=== PATIENT | female | born 1950 | race Hispanic/Latino ===

== ENCOUNTER 2018-05-14 06:54 | Observation (INO) | payer MEDICARE ==
[2018-05-04 13:35] LABS: BASOPHILS # (AUTO) 0.1 (0.0-0.1); BASOPHILS % 0.5 % (0.0-1.0); EOSINOPHILS # (AUTO) 0.3 (0.0-0.4); EOSINOPHILS % 2.6 % (0.0-6.0); HEMATOCRIT 40.2 % (34.2-44.1); HEMOGLOBIN 12.8 g/dL (12.0-16.0); LYMPHOCYTES # (AUTO) 3.3 (1.0-3.2); LYMPHOCYTES % 28.6 % (18.0-39.1); MEAN CORPUSCULAR HEMOGLOBIN 27.2 pg (28-32); MEAN CORPUSCULAR HGB CONC 31.8 g/dL (31-35); MEAN CORPUSCULAR VOLUME 85.4 fL (81-99); MONOCYTES # (AUTO) 0.7 (0.2-0.8); MONOCYTES % 6.4 % (4.4-11.3); NEUTROPHILS # (AUTO) 7.1 (2.1-6.9); NEUTROPHILS % 61.6 % (38.7-80.0); PLATELET COUNT 307 x10e3/uL (140-360); RED BLOOD COUNT 4.71 x10e6/uL (3.6-5.1); RED CELL DISTRIBUTION WIDTH 14.3 % (11.7-14.4)
[2018-05-04 13:58] LABS: BLOOD UREA NITROGEN 20 mg/dL (7-26); BUN/CREATININE RATIO 23 (6-25); CALCIUM 8.9 mg/dL (8.4-10.2); CARBON DIOXIDE 23 mmol/L (22-29); CHLORIDE 105 mmol/L (98-107); CREATININE, SERUM 0.86 mg/dL (0.57-1.11); EST GLOMERULAR FILTRATION RATE > 60 ML/MIN (60-); GLUCOSE 137 mg/dL (74-118); SODIUM 138 mmol/L (136-145)
--- NOTE | 2018-05-04 14:14 | Diagnostic Imaging Report ---
Frontal and lateral views of the chest. HISTORY: Preop, nonunion left humerus COMPARISON: None available. DISCUSSION: Soft tissue attenuation partially limits sensitivity of the exam. Lungs: Low lung volumes result in bibasilar vascular crowding, accentuation of the pulmonary interstitial markings, central pulmonary vasculature, and the cardiac silhouette. Allowing for these limitations, the findings are as follows: No evidence of a consolidative pneumonia or pulmonary alveolar edema. Pleura: No pleural effusion or pneumothorax. Heart and mediastinum: The cardiomediastinal silhouette appears unremarkable. Bones: No acute osseous lesion. Minimal to mild multilevel degenerative disc changes. IMPRESSION: No acute radiographic abnormality, when allowing for the expiratory phase of respiration. Signed by: Dr. Amrit Esposito D.O., M.M.M. on 05/04/2018 2:11 PM
[~2018-05-14] VITALS: Ht 154.9 cm; Wt 79.8 kg
[~2018-05-14 06:54] MED LIST: AMLODIPINE BESYL5 MG PO; FARXIGA PO; HUMALOG MI100 UNITS/ SC; IBUPROFEN400 MG PO; LISINOPRIL10 MG PO; LORATADINE10 MG PO; LYRICA75 MG PO; METFORMIN HCL850 MG PO; ULTRAM50 MG PO; VICTOZA 2-0.6 MG/0.1 PO
--- OUTSIDE RECORDS SUMMARY | 2018-05-14 06:56 | XMS REPORT ---
Author Author [facility] Address Unknown Phone Unavailable Care Team Providers Care Piece Worker Name Role Phone TIO AIKEN Unavailable Unavailable Payers Payer Name Policy Type Policy Number Effective Date Expiration Date Problems This patient has no known problems. Allergies, Adverse Reactions, Alerts Allergy Name Allergy Type Status Severity Reaction(s) Onset Date Inactive Date Treating Clinician Comments No Known Allergies DA Active U 2012-04-03 00:00:00 Medications This patient has no known medications. Encounters Start Date/Time End Date/Time Encounter Type Admission Type Attending [facility] Care Department Encounter ID 2018-03-30 15:50:26 2018-03-30 15:50:26 Emergency [facility] [id number] 2018-03-30 13:15:55 2018-03-30 13:15:55 Emergency [facility] [id number] 2017-10-17 00:00:00 2017-10-17 00:00:00 Outpatient [facility] [id number] 2017-09-25 10:46:05 2017-09-25 10:46:05 Outpatient [facility] [id number] 2017-09-05 16:00:40 2017-09-05 16:00:40 Emergency [facility] [id number] 2017-08-30 00:00:00 2017-08-30 00:00:00 Outpatient [facility] [id number] 2017 18:47:25 2017 18:47:25 Emergency [facility] [id number] 2017 15:22:07 2017 15:22:07 Emergency [facility] [id number] 2017 00:00:00 2017 00:00:00 Outpatient [facility] [id number] 2017 00:00:00 2017 00:00:00 Outpatient [facility] [id number] 2017-08-17 00:00:00 2017-08-17 00:00:00 Outpatient [facility] [id number] 2017-07-25 00:00:00 2017-07-25 00:00:00 Outpatient [facility] [id number] 2017-07-25 00:00:00 2017-07-25 00:00:00 Outpatient [facility] [id number] 2017-07-17 10:11:04 2017-07-17 10:11:04 Outpatient [facility] [id number] 2017-07-09 20:41:22 2017-07-09 20:41:22 Emergency [facility] [id number] 2017-07-09 17:20:57 2017-07-09 17:20:57 Emergency [facility] [id number] 2017-06-23 13:55:52 2017-06-23 13:55:52 Outpatient [facility] [id number] 2017-06-21 00:00:00 2017-06-21 00:00:00 Outpatient [facility] [id number] 2017-06-07 00:00:00 2017-06-07 00:00:00 Outpatient [facility] [id number] 2017-05-31 00:00:00 2017-05-31 00:00:00 Outpatient [facility] [id number] 2017-05-26 11:22:36 2017-05-26 11:22:36 Outpatient [facility] [id number] 2017-05-17 00:00:00 2017-05-17 00:00:00 Outpatient [facility] [id number] 2017-05-09 00:00:00 2017-05-09 00:00:00 Outpatient [facility] [id number] 2017-05-02 00:00:00 2017-05-02 00:00:00 Outpatient [facility] [id number] 2017-05-01 13:17:12 2017-05-01 13:17:12 Outpatient [facility] [id number] 2017-04-27 14:33:24 2017-04-27 14:33:24 Outpatient [facility] [id number] 2017-04-27 14:27:46 2017-04-27 14:27:46 Outpatient [facility] [id number] 2017-04-20 18:26:30 2017-04-20 18:26:30 Emergency [facility] [id number] 2017-04-04 09:06:46 2017-04-04 09:06:46 Outpatient [facility] [id number] 2017-03-27 09:59:45 2017-03-27 09:59:45 Outpatient [facility] [id number] 2017-03-20 00:00:00 2017-03-20 00:00:00 Outpatient [facility] [id number] 2017-03-16 00:00:00 2017-03-16 00:00:00 Outpatient [facility] [id number] 2017-03-14 00:00:00 2017-03-14 00:00:00 Outpatient [facility] [id number] 2017-03-09 00:00:00 2017-03-09 00:00:00 Outpatient [facility] [id number] 2017-03-06 10:28:06 2017-03-06 10:28:06 Outpatient [facility] [id number] 2017-02-27 16:20:21 2017-02-27 16:20:21 Outpatient [facility] [id number] 2017-02-23 00:00:00 2017-02-23 00:00:00 Outpatient [facility] [id number] 2017-02-14 00:00:00 2017-02-14 00:00:00 Outpatient [facility] [id number] 2017-02-13 00:00:00 2017-02-13 00:00:00 Outpatient [facility] [id number] 2017-02-13 00:00:00 2017-02-13 00:00:00 Outpatient [facility] [id number] 2017-02-01 13:07:37 2017-02-01 13:07:37 Outpatient [facility] [id number] 2017-01-31 23:19:04 2017-01-31 23:19:04 Emergency [facility] [id number] 2017-01-31 17:18:17 2017-01-31 17:18:17 Emergency [facility] [id number] 2017-01-31 15:30:47 2017-01-31 15:30:47 Outpatient [facility] [id number] 2017-01-30 00:00:00 2017-01-30 00:00:00 Outpatient [facility] [id number] 2017-01-20 00:00:00 2017-01-20 00:00:00 Outpatient [facility] [id number] 2017-01-19 07:54:33 2017-01-19 07:54:33 Outpatient [facility] [id number] 2017-01-12 15:44:53 2017-01-12 15:44:53 Outpatient [facility] [id number] 2017-01-12 15:21:24 2017-01-12 15:21:24 Outpatient [facility] [id number] 2017-01-03 08:20:49 2017-01-03 08:20:49 Outpatient [facility] [id number] 2016-12-30 13:47:12 2016-12-30 13:47:12 Outpatient [facility] [id number] 2016-12-29 07:39:37 2016-12-29 07:39:37 Outpatient [facility] [id number] 2016-12-26 00:00:00 2016-12-26 00:00:00 Outpatient [facility] [id number] 2016-12-22 11:21:31 2016-12-22 11:21:31 Outpatient [facility] [id number] 2016-12-22 11:04:52 2016-12-22 11:04:52 Outpatient [facility] [id number] 2016-12-21 09:53:07 2016-12-21 09:53:07 Outpatient [facility] [id number] 2016-12-21 00:00:00 2016-12-21 00:00:00 Outpatient [facility] [id number] 2016-12-09 00:00:00 2016-12-09 00:00:00 Outpatient [facility] [id number] 2016-12-05 08:22:09 2016-12-05 08:22:09 Outpatient [facility] [id number] 2016-12-05 07:57:13 2016-12-05 07:57:13 Outpatient [facility] [id number] 2016-11-09 08:14:20 2016-11-09 08:14:20 Outpatient [facility] [id number] 2016-11-02 15:08:05 2016-11-02 15:08:05 Outpatient [facility] [id number] 2016-11-02 13:49:40 2016-11-02 13:49:40 Outpatient [facility] [id number] Results Test Description Test Time Test Comments Text Results Atomic Results Result Comments CHEST 2 VIEWS 2018-05-04 14:09:00 [facility] [address] [place], [place] [id number] Patient Name: ROSANNA PAZ MR #: [id number] : 1950 Age/Sex: 67/F Req #: [id number] [facility] Physician: Ordered by: TIO AIKEN MD Report #: [id number] Location: OR Room/Bed: Procedure: [id number] DX/CHEST 2 VIEWS Exam Date: 05/04/18 Exam Time: 1200 REPORT STATUS: Signed Frontal and lateral views of the chest. HISTORY: Preop, nonunion left humerus COMPARISON: None available. DISCUSSION: Soft tissue attenuation partially limits sensitivity of the exam. Lungs: Low lung volumes result in bibasilar vascular crowding, accentuation of the pulmonary interstitial markings, central pulmonary vasculature, and the cardiac silhouette. Allowing for these limitations, the findings are as follows: No evidence of a consolidative pneumonia or pulmonary alveolar edema. Pleura: No pleural effusion or pneumothorax. Heart and mediastinum: The cardiomediastinal silhouette appears unremarkable. Bones: No acute osseous lesion. Minimal to mild multilevel degenerative disc changes. IMPRESSION: No acute radiographic abnormality, when allowing for the expiratory phase of respiration. Signed by: Dr. Lisa Esposito D.O., M.M.M. on 05/04/2018 2:11 PM Dictated By: LISA ESPOSITO DO 10 Transcribed By: EDUARDO on 05/04/181410 COPY TO: TIO AIKEN MD
[2018-05-14] MEDS ORDERED: CEFAZOLIN SOD 1 GM VIAL ONE (07:33)
[2018-05-14] MEDS ORDERED: ACETAMINOPHEN 1000 MG/100 ML 100 ML IV ONE (11:22)
[2018-05-14] MEDS: SODIUM CHLORIDE 0.9% 1000ML 1,000 ML IV SCH ×3 (12:36→22:36)
[2018-05-14] MEDS ORDERED: ACETAMINOPHEN 650 MG SUPP PR PRN (12:45)
[2018-05-14] MEDS ORDERED: HYDROCODONE/APAP 7.5MG-325MG 1 EA TAB PO PRN (12:45)
[2018-05-14] MEDS ORDERED: HYDROCODONE/APAP 5MG-325MG TAB PO PRN (12:45)
[2018-05-14] MEDS ORDERED: KETOROLAC TROMETHAMINE 30 MG/ML VIAL IV PRN (12:45)
[2018-05-14] MEDS ORDERED: DOCUSATE SODIUM 100 MG CAP PO PRN (12:45)
[2018-05-14] MEDS ORDERED: PROMETHAZINE HCL (IM) 25 MG/ML VIAL INJ PRN (12:45)
[2018-05-14] MEDS ORDERED: DIPHENHYDRAMINE HCL INJ 50 MG/ML VIAL IM/IV PRN (12:45)
[2018-05-14] MEDS ORDERED: ZOLPIDEM TARTRATE 5 MG TAB PO PRN (12:45)
[2018-05-14] MEDS ORDERED: ONDANSETRON HCL INJ 2MG/ML 2ML 2 MG/ML VIAL IV PRN (12:45)
[2018-05-14] MEDS ORDERED: HYDROMORPHONE 2MG/ML 2 MG/ML ML ONE (12:49)
[2018-05-14] MEDS ORDERED: FENTANYL CITRATE/PF 100MCG/2 ML INJ ONE ×2 (13:11→18:18)
[2018-05-14] MEDS ORDERED: MORPHINE SULFATE 2 MG/ML SYR 1ML ONE (13:38)
[2018-05-14] MEDS ORDERED: CEFAZOLIN SOD 1 GM/NS 50ML 50 ML IV SCH (14:00)
[2018-05-14] MEDS ORDERED: HYDROCODONE/APAP 7.5MG-325MG 1 EA TAB ONE (14:47)
--- NOTE | 2018-05-14 15:12 | Operative Report ---
DATE OF PROCEDURE: May 14, 2018 USER INTERFACE ARTIST: Zeke Alcazar PA-C The patient was brought to the operating room for induction of anesthesia. Throughout this case, my PA's assistance was necessary for retraction of soft tissue and positioning of the extremity. This allows for efficient and technically successful execution of the operation and is considered medically necessary. PREOPERATIVE DIAGNOSIS: Left humeral shaft nonunion. POSTOPERATIVE DIAGNOSIS: Left humeral shaft nonunion. PROCEDURE: 1. Irrigation and debridement, left humeral shaft nonunion. 2. Open reduction and internal fixation, left humerus. INDICATIONS: The patient is a 67-year-old lady who is approximately 2 years status post a left humeral shaft fracture. 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 There was gross mobility at the fracture site. The findings and options have been discussed with the patient. She would like to have this surgically stabilized. The risks and benefits have been explained at length. All of her questions have been answered. She states she understands and wishes to proceed. DESCRIPTION OF PROCEDURE: The patient was brought to the operating room and placed under general anesthetic. She received a regional block and prophylactic antibiotics in the holding area. Her left upper extremity was prepped and draped in a sterile manner. A preoperative time out was performed. An anterior approach was made to the left shoulder and proximal humerus. The deltopectoral interval was identified. The cephalic vein was protected throughout the case. The fracture site was carefully exposed. Hemostasis was obtained with electrocautery. The hypertrophic nonunion was debrided of all fibrous tissue at the fracture site. The fracture was grossly lined up and the shaft of the humerus was contoured to allow positioning of a plate. A [employer] proximal humeral locking plate was placed on the humeral shaft. Positioning of the hardware was confirmed with an intraoperative C-arm image intensifier. The fracture was locked with a combination of compression and locking screws. Intraoperative x-rays confirmed near anatomic alignment and good positioning of all the hardware. The wound was thoroughly irrigated. Ten mL of DBX bone putty was injected at the fracture site. The deep fascia was closed with 0 Vicryl. The skin was closed with subcuticular Vicryl and milana. She was placed into a sterile bandage and an ultra sling. She was extubated and transported to the recovery room in stable condition. Estimated blood loss was 100 mL. At the end of the procedure needle and sponge counts were correct. Job#: [id number] GH
--- NOTE | 2018-05-14 15:25 | NUR ---
RECEIVED PATIENT FROM PACU, ARRIVED IN STRETCHER ABLE TO ASSIST TO TRANSFER FROM STRETCHER TO BED, PATIENT IS AWAKE ALERT AND ORIENTED TO SELF, AND MOANING C/O OF PAIN TO LEFT UPPER EXTREMITY, S/P ORIF TO LEFT HUMERUS,. IVF INFUSING LR, PLACED ON IV PUMP @100CC/HR. PATIENT REQUESTED REMOVAL OF NON-SKID SOCKS, IV ACCESS TO RIGHT HAND. ORIENTED TO ROOM AND USE OF CALL LIGHT FAMILY AT BEDSIDE, WILL CONTINUE TO MONITOR.
[2018-05-14 16:00] VITALS: BP 154/89
[2018-05-14] MEDS: ASPIRIN 325 MG TAB PO SCH (17:42)
[2018-05-14] MEDS: CEFAZOLIN SOD 1 GM VIAL IV SCH ×2 (17:42→22:36)
[2018-05-14] MEDS: ACETAMINOPHEN 1000 MG/100 ML IV SCH (17:43)
[2018-05-14] MEDS: CELECOXIB 200 MG CAP PO SCH (17:50)
[2018-05-14] MEDS ORDERED: LIDOCAINE HCL 2% LOCAL INJ 5 ML SDV VIAL INJ ONE (18:02)
[2018-05-14] MEDS ORDERED: ONDANSETRON HCL INJ 2MG/ML 2ML 2 MG/ML VIAL ONE (18:02)
[2018-05-14] MEDS ORDERED: PROPOFOL IV EMULSION 10 MG/ML 20 ML VIAL ONE (18:02)
[2018-05-14] MEDS ORDERED: DEXAMETHASONE SOD PHOS INJ 4 MG/ML VIAL ONE (18:02)
[2018-05-14] MEDS ORDERED: SEVOFLURANE INHAL SOLN 250 ML PEN BTL ONE (18:02)
[2018-05-14] MEDS ORDERED: ROPIVACAINE 0.5% 5 MG/ML 30 ML SDV ONE (18:04)
[2018-05-14] MEDS ORDERED: LIDOCAINE 2%/ EPINEPHRINE 20ML MDV ONE (18:04)
[2018-05-14] MEDS ORDERED: MIDAZOLAM HCL 2 MG/2 ML VIAL ONE (18:18)
[2018-05-14 19:16] VITALS: BP 154/89
[2018-05-14 20:00] VITALS: BP 189/91
[2018-05-14] MEDS ORDERED: DEXTROSE 50% SYRINGE 50 ML IV PRN (20:00)
--- NOTE | 2018-05-14 20:00 | NUR ---
BLOOD SUGAR SHOWS 261.CALL PLACED TO MD HINOJOSA TO RENEW THE HOME MEDICATION(BP MEDICINES & INSULIN).RECEIVED ORDERS.CARRIED OUT THE ORDERS.
[2018-05-14 20:20] VITALS: BP 189/91
[2018-05-14] MEDS: AMLODIPINE BESYLATE 5 MG TAB PO SCH (20:59)
[2018-05-14] MEDS ORDERED: PNEUMOCOCCAL VACCINE POLYVALENT 23 MCG/0.5 ML VIAL IM ONE (21:00)
[2018-05-14] MEDS: INSULIN LISPRO 100 UNIT/1 ML 3ML VIAL SQ SCH (21:00)
--- NOTE | 2018-05-14 21:30 | NUR ---
IV IS LEAKING.NEW IV STARTED @ R.WRIST.ASSESSMENT DONE.AAOX4.PAIN VOICED 10/26.PAIN MEDICATION GIVEN.VOIDED.AMBULATES WITH ASSISTANCE.L.ARM SUPPORTED WITH SLING.BED LOCKED AND IN LOWEST POSITION.CALL LIGHT WITHIN REACH.FAMILY MEMBER @ BED SIDE.FREQUENT ROUNDING.
[2018-05-15] MEDS: ACETAMINOPHEN 1000 MG/100 ML IV SCH ×2 (00:05→05:48)
[2018-05-15 00:11] VITALS: BP 146/68
[2018-05-15 04:00] VITALS: BP 125/69
[2018-05-15 05:23] LABS: HEMATOCRIT 38.1 % (34.2-44.1)
[2018-05-15] MEDS: CEFAZOLIN SOD 1 GM VIAL IV SCH (05:48)
--- NOTE | 2018-05-15 06:00 | NUR ---
DRESSING CHANGED TO L.ARM.SITE IS DRY AND INTACT.TOLERATED WELL.
--- NOTE | 2018-05-15 06:07 | Consultation ---
DATE OF CONSULTATION: REASON FOR CONSULTATION: Postop medical management. HISTORY OF PRESENT ILLNESS: The patient is a lady who is status post left shoulder fracture repair and is doing well postoperatively, but does complain of some pain in the left arm area. REVIEW OF SYSTEMS: Denies any chest pain, fever, chills, nausea, vomiting, headaches, shortness of breath, or dizziness. PAST MEDICAL HISTORY: Diabetes and hypertension. MEDICATIONS: See MAR. ALLERGIES: SEE MAR. SOCIAL HISTORY: Lives at home with her . Nonsmoker and nondrinker. FAMILY HISTORY: Noncontributory. PHYSICAL EXAMINATION VITALS: 98.6, pulse 76, blood pressure 136/74, sats 98%. GENERAL: No apparent distress. NECK: Supple. CARDIOVASCULAR: Regular rate and rhythm. LUNGS: Clear to auscultation bilaterally. ABDOMEN: Good bowel sounds. Soft and nontender. EXTREMITIES: No clubbing or cyanosis. Left arm is in a brace. Is able to move left fingers and they are warm to touch with good capillary refill. NEUROLOGIC: Nonfocal. ASSESSMENT 1. Status post left humeral fracture repair: Continue with postoperative care and pain control. 2. Hypertension: Continue with her medications and monitor blood pressure. 3. Diabetes: Continue current care and management for sugar. Please see hospital chart for full details. Job#: [id number] ALEXANDRE
--- NOTE | 2018-05-15 06:50 | NUR ---
REPORT GIVEN TO THE ONCOMING RN.WALKING ROUNDS DONE.STABLE CONDITION.
[2018-05-15] MEDS ORDERED: METFORMIN HCL 500 MG TAB PO SCH (08:00)
[2018-05-15] MEDS: ASPIRIN 325 MG TAB PO SCH (08:11)
[2018-05-15] MEDS: CELECOXIB 200 MG CAP PO SCH (08:11)
[2018-05-15] MEDS: INSULIN LISPRO 100 UNIT/1 ML 3ML VIAL SQ SCH (08:11)
[2018-05-15] MEDS: AMLODIPINE BESYLATE 5 MG TAB PO SCH (08:11)
[2018-05-15] MEDS: SODIUM CHLORIDE 0.9% 1000ML 1,000 ML IV SCH (08:16)
[2018-05-15 08:26] VITALS: BP 123/63
[2018-05-15 08:31] VITALS: BP 123/63
[2018-05-15] MEDS ORDERED: METFORMIN HCL 850 MG TAB PO SCH (09:00)
[2018-05-15] MEDS ORDERED: LISINOPRIL 10 MG TAB PO SCH (09:00)
[2018-05-15] MEDS ORDERED: LISINOPRIL 20 MG TAB PO SCH (09:00)
[2018-05-15] MEDS ORDERED: PNEUMOCOCCAL VACCINE POLYVALENT 23 MCG/0.5 ML VIAL IM ONE (10:00)
[2018-05-15 11:33] VITALS: BP 102/56
[2018-05-15 11:35] VITALS: BP 102/56
[2018-05-15] MEDS ORDERED: NORCO 5-325 TA1 EACH PO (12:01)
[2018-05-15] MEDS ORDERED: ACETAMINOPHEN 1000 MG/100 ML IV PRN (12:45)
--- NOTE | 2018-07-22 08:25 | Consultation ---
DATE OF CONSULTATION: May 15, 2018 REASON FOR CONSULTATION: Postop medical management. HISTORY OF PRESENT ILLNESS: Patient is a 67-year-old status post left arm fracture repair, who is doing well postoperatively. Denies any chest pain, fever, chills, nausea, vomiting, headaches shortness of breath, or dizziness on review of systems, but does have some arm pain that is controlled. PAST MEDICAL HISTORY: Significant for diabetes and hypertension. MEDICATIONS: See MAR. ALLERGIES: NONE. SOCIAL HISTORY: Nonsmoker, nondrinker. FAMILY HISTORY: Noncontributory. PHYSICAL EXAMINATION VITAL SIGNS: Temperature 97.9, pulse 82, blood pressure 146/68, sats 96%. GENERAL: In no apparent distress. LUNGS: Clear to auscultation bilaterally. ABDOMEN: Good bowel sounds. Soft and nontender. CARDIOVASCULAR: Regular rate and rhythm. NECK: No lymphadenopathy. EXTREMITIES: Show no clubbing or cyanosis. NEUROLOGIC: Nonfocal. ASSESSMENT AND PLAN 1. Left arm fracture/pain. We will continue with postoperative care. 2. Diabetes. Continue with current care, monitoring of sugar. 3. Hypertension. Continue with her medications. Please see hospital chart for full details. Job#: [id number] PUN
== END 2018-05-15 12:26 | disposition home or self-care (01) ==
LOC: OR 06:54 → PACU V 12:39 → MED/SURG 15:02
PROVIDERS: ADMIT Specialist; ATTEND Specialist
DX: S42.362A Displaced segmental fracture of shaft of humerus, left arm, initial encounter for closed fracture (principal); X58.XXXA Exposure to other specified factors, initial encounter; E11.9 Type 2 diabetes mellitus without complications; I10 Essential (primary) hypertension; Z90.49 Acquired absence of other specified parts of digestive tract; Z83.3 Family history of diabetes mellitus; Z82.49 Family history of ischemic heart disease and other diseases of the circulatory system; Z79.4 Long term (current) use of insulin; Z23 Encounter for immunization; R05 Cough; Z01.810 Encounter for preprocedural cardiovascular examination; Z01.812 Encounter for preprocedural laboratory examination; Z01.811 Encounter for preprocedural respiratory examination
CPT/HCPCS: 24430; 36415 ×3; 71046; 76001; 80048; 82948 ×2; 85014; 85018; 85025; 90732; 93005; 97116; 97161; 97530 ×2; C1713 ×6; G0009; G0378 ×2; G8978; G8979; J0131 ×2; J0690 ×2; J1100; J1170; J1885; J2001 ×2; J2250; J2270; J2405; J2704; J2795; J7030

== ENCOUNTER 2018-09-03 22:30 | Emergency (ER) | payer MEDICARE ==
[~2018-09-03] VITALS: Ht 154.9 cm; Wt 79.8 kg
[~2018-09-03 22:30] MED LIST changes: +NORCO 5-325 TA1 EACH PO
== END 2018-09-04 01:15 | disposition left against medical advice (07) ==
LOC: ER 22:30
DX: L03.011 Cellulitis of right finger (principal)